=== PATIENT | male | born 1985 | race Caucasian/White ===

== ENCOUNTER → 2018-06-17 | Outpatient (CLI) | payer BC, OTHER ==
[~2018-06-17] VITALS: Ht 188 cm; Wt 83.9 kg
[~2018-06-17] MED LIST: FLEXERIL PO; LOSARTAN POTASS50 MG PO; MOBIC7.5 MG PO
--- NOTE | ~2018-06-17 | HPC ---
[facility] [address] [address] PAIN MANAGEMENT CONSULTATION Name: DACIA FRIED Room #: REG [facility] Dianne.#: [id number] Admission: 06/17/18 Attend Phys: Kirill Lockhart MD Discharge: Date of : 85 Report #: [id number] THIS REPORT FOR: //name// CC: Octaviano Vann MD [facility] Luly Juwan Lockhart DATE OF SERVICE: 06/17/2018 CHIEF COMPLAINT: Severe back spasm with radiation into both legs. The patient is a 32-year-old who is now on his first week of an acute back episode. He has never had an episode like this. He and his have a new baby. He was doing some bending, lifting and he noticed pain with forward flexion, which is now worsened into an episode of severe back spasm radiating down into the legs with hamstring tightness. He describes it as a continuous, steady, constant pain, burning, shooting, and pulling. Pain score is a 9/10. It is worse with all bending, lifting and even lowering his neck causes pain. It is made better by stretching and ice. He has had no treatments and considered chiropractic which we discussed today as an option. He has taken no medications as an anti-inflammatory drug. His only other medication is losartan. ALLERGIES: None. PAST MEDICAL HISTORY: Positive for hypertension. No previous surgeries. 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 Denies use of tobacco, drinks alcohol in social setting, usually around sporting events and with socializing. REVIEW OF SYSTEMS: Completely negative. PHYSICAL EXAMINATION: GENERAL: He is a fit-appearing 32-year-old. VITAL SIGNS: His blood pressure is 135/88, heart rate is 80. MUSCULOSKELETAL: He moves from a sitting to standing position gingerly and has trouble straightening up. He walks with antalgic gait. Spine reveals marked lumbar spasm and pain with forward flexion and extension limited by about 30-50% in all planes. Straight leg raising is very difficult owing to a significant hamstring tightness. This may be consistent with acute radiculopathy as well. Sensation is intact. No numbness or tingling. No focal weakness is noted. X-RAYS: None. [address] [address] PAIN MANAGEMENT CONSULTATION Name: DACIA FRIED Room #: REG [facility].#: [id number] Admission: 06/17/18 Attend Phys: Kirill Lockhart MD Discharge: Date of : 85 Report #: [id number] IMPRESSION: 1. Acute lumbosacral back pain with significant pain in the legs as well with hamstring tightness. RECOMMENDATIONS: Although, this may be a more significant event such as disk herniation, history is not consistent with an acute event one with gradual onset. This is also a fairly consistent finding in someone with the first episode of acute lumbosacral strain. I will hold off on ordering an MRI for this week as we see if he improves with some conservative measures. I referred him to [facility] for physical therapy. I have given him a nonsteroidal anti-inflammatory drug to take on a daily basis at 7.5 mg of meloxicam b.i.d. and I have given him cyclobenzaprine 10 mg t.i.d. for muscle spasm. We will hold off on any opioids for acute pain at this point. If his pain worsens, changes or if he notices more sensory symptoms such as numbness or weakness, then we will consider a more urgent MRI. He has no bowel or bladder dysfunction. Followup visit is planned in 1 week if not better. We will consider an epidural injection at that time if these conservative measures do not help. By: [id number] Kirill Lockhart MD /nt
[2018-06-17 15:13] VITALS: BP 150/96
== END ==
LOC: PAIN 13:12
DX: M54.5 Low back pain (principal); M79.604 Pain in right leg; M79.605 Pain in left leg; M62.830 Muscle spasm of back

== ENCOUNTER → 2018-08-08 | Outpatient (CLI) | payer BC, OTHER ==
[~2018-08-08] VITALS: Ht 188 cm; Wt 84.0 kg
--- NOTE | ~2018-08-08 | HPC ---
[facility] [place] [address] PAIN MANAGEMENT CONSULTATION Name: DACIA FRIED Room #: REG [facility].#: [id number] Admission: 08/08/18 Attend Phys: Kirill Lockhart MD Discharge: Date of : 85 Report #: [id number] THIS REPORT FOR: //name// CC: Luly Lockhart DATE OF SERVICE: 08/08/2018 Followup visit for low back pain with radiculopathy. It has now been over 2 months for the patient, he has completed physical therapy rotation, continues to do exercise, has been on pain medication including anti-inflammatories and is here today for consideration of an epidural injection. He has seen improvement in the tightness in his back, but the radicular symptoms of the right leg persist. MEDICATIONS: All medications reviewed. He continues on losartan. ALLERGIES: None. 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 He has a new baby and is enjoying the holiday. He is still somewhat limited in moving from sitting to standing position and ambulating. PHYSICAL EXAMINATION: He is 6 feet 2 inches, 185 pounds, BMI 23.8. Blood pressure 149/92, heart rate 74. Pain across the low back is noted. Limited range of motion in flexion and extension. Tenderness across the lumbosacral segment. Positive straight leg raising noted on the right. IMPRESSION: Lumbar radiculopathy. I would like to do an epidural injection today and get an MRI before the end of the year. Slow improvement warrants that we identify underlying pathology. Epidural injection, however, as I think is the most important step and we will do that to try and provide pain relief over the holidays. PROCEDURE: Lumbar epidural steroid injection under fluoroscopic guidance, L4-L5. DESCRIPTION OF PROCEDURE: He was taken to the fluoroscopic suite and placed prone, skin prepped with ChloraPrep. Skin anesthetized over the L4-L5 interspace. A 20-gauge Tuohy epidural needle advanced into the epidural space with good loss of resistance. I injected dye, but I was not pleased with the spread of dye, felt it was posterior even though the lateral appeared to be okay. The needle was removed and repositioned in the epidural space again with good loss to resistance. A better epidurogram was obtained moving to the right. [address] [address] PAIN MANAGEMENT CONSULTATION Name: DACIA FRIED Room #: [facility] [id number] Admission: 08/08/18 Attend Phys: Kirill Lockhart MD Discharge: Date of : 85 Report #: [id number] This was then followed by 3 mL of 0.5% lidocaine mixed with 80 mg of triamcinolone. He tolerated the procedure well and was observed for 45 minutes and discharged. Followup visit scheduled in the pain clinic in 1-2 months. By: 1637 Kirill Lockhart MD /christina
[2018-08-08 09:41] VITALS: BP 149/92
== END | disposition home or self-care (01) ==
LOC: PAIN 08:55
DX: M54.16 Radiculopathy, lumbar region (principal); G89.29 Other chronic pain; Z79.899 Other long term (current) drug therapy

== ENCOUNTER 2018-11-01 03:20 | Emergency (ER) | payer BC, OTHER ==
[~2018-11-01] VITALS: Ht 188 cm; Wt 83.9 kg
[2018-11-01 03:50] LABS: ABSOLUTE NEUTROPHILS 3.5 thou/uL (1.4-8.2); BASOPHILS 0.8 % (0.0-2.0); EOSINOPHILS 2.2 % (0.0-3.0); HEMATOCRIT 44.1 % (42.0-52.0); HEMOGLOBIN 15.2 gm/dL (14.0-18.0); LYMPHOCYTES 25.5 % (24.0-44.0); MCH 31.7 pg (26.0-34.0); MCHC 34.4 g/dL (28.0-37.0); MCV 92.1 fL (80.0-100.0); PLATELET COUNT 167 thou/uL (150-400); POLYS 62.5 % (36.0-66.0); RBC 4.79 mil/uL (4.50-6.00); RDW 13.2 % (10.5-14.5); WBC 5.6 thou/uL (4.0-11.0)
[2018-11-01 03:53] LABS: CREATININE 1.2 mg/dL (0.7-1.3); POTASSIUM 3.6 mmol/L (3.5-5.1)
[2018-11-01 04:28] LABS: URINE BILIRUBIN NEGATIVE (Negative); URINE BLOOD 3+ (Negative); URINE CLARITY CLEAR; URINE COLOR YELLOW; URINE GLUCOSE-RANDOM* NEGATIVE (Negative); URINE KETONES NEGATIVE (Negative); URINE LEUKOCYTES-REFLEX NEGATIVE (Negative); URINE NITRITE-REFLEX NEGATIVE (Negative); URINE PROTEIN (DIPSTICK) TRACE (Negative); URINE SPECIFIC GRAVITY >= 1.030 (1.005-1.035); URINE UROBILINOGEN 0.2 E.U./dl (0.2-1.0)
[2018-11-01 04:55] LABS: BACTERIA-REFLEX 1-9 Few /HPF (None Seen); CASTS None Seen /LPF (None Seen); CRYSTALS None Seen /LPF (None Seen); MUCUS 0-3 Light strn/LPF (None Seen); SQUAMOUS 0-3 Few /LPF (0-3); TRANSITIONAL EPITHEL CELL 0-3 Few /LPF (None Seen); URINE WBC-REFLEX 0-5 Rare /HPF (0-5)
[2018-11-01 05:59] VITALS: BP 142/77
[2018-11-01] MEDS ORDERED: FLOMAX0.4 MG PO (06:03)
[2018-11-01] MEDS ORDERED: NORCO 5-325 TA1 EACH PO (06:03)
[2018-11-01] MEDS ORDERED: ZOFRAN ODT4 MG PO (06:03)
== END 2018-11-01 06:11 | disposition home or self-care (01) ==
LOC: ER 03:20
PROVIDERS: Emergency Medicine
DX: N20.1 Calculus of ureter (principal); I10 Essential (primary) hypertension

== ENCOUNTER → 2018-12-09 | Outpatient (CLI) | payer BC, OTHER ==
[~2018-12-09] VITALS: Ht 188 cm; Wt 86.9 kg
[~2018-12-09] MED LIST changes: +FLOMAX0.4 MG PO; +NORCO 5-325 TA1 EACH PO; +ZOFRAN ODT4 MG PO
--- NOTE | ~2018-12-09 | HPC ---
[facility] [place] [address] PAIN MANAGEMENT CONSULTATION Name: DACIA FRIED Room #: REG [facility] Raffae[facility].#: [id number] Admission: 12/09/18 ������������������ Attend Phys: Kirill Lockhart MD Discharge: ������������������ Date of : 85 Report #: [id number] THIS REPORT FOR: //name// CC: LYNDSAY ROSE CANDELARIA Lockhart DATE OF SERVICE: 12/09/2018 Followup visit for chronic low back pain with radiculopathy. The patient was seen last on 08/08/2018 when we performed his first epidural injection for persistent low back pain with radiculopathy. After 2 weeks, the pain was gone and has stayed away up until just recently. He feels that he has exacerbated his pain with activities in the first part of October and it has not gotten better with conservative management over the last 3-4 weeks. He is here today for another epidural injection given his excellent response to his last injection. Pain intensity is a 7/10. It is worse with sitting and he actually has taken on a standing desk at work and a different chair, which has made a difference. MEDICATIONS: Losartan. ALLERGIES: None. PHYSICAL EXAMINATION: GENERAL: He is a healthy appearing 33-year-old. VITAL SIGNS: Blood pressure is 135/86, heart rate 98, respirations 16. He is 6 feet 2 inches, 191 pounds. MUSCULOSKELETAL: He moves from sitting to standing position without much difficulty and ambulates without difficulty. He has some pain across his low back, pain with positive straight leg raising noted bilaterally with tightness. MRI shows degenerative disk disease with a broad-based disk bulge at L4-L5. There is no spinal stenosis or neural foraminal narrowing. IMPRESSION: Degenerative disk disease, L4-L5 with radiculopathy, which is recurrent. RECOMMENDATIONS: Repeat epidural injection under fluoroscopic guidance. PROCEDURE: The patient was taken to fluoroscopic suite, placed prone, skin prepped with ChloraPrep. Skin anesthetized over L4-L5. A 20-gauge Tuohy epidural needle advanced first attempt in the epidural space with loss of resistance technique. There was no blood or CSF aspirated. 1 mL of Omnipaque injected. Good spread of dye observed in the epidural space followed by 3 mL of [facility] [address] [place] [address] PAIN MANAGEMENT CONSULTATION Name: DACIA FRIED [facility] #: [facility] [id number] Admission: 12/09/18 ������������������ Attend Phys: Kirill Lockhart MD Discharge: ������������������ Date of : 85 Report #: [id number] 0.5% lidocaine mixed with 80 mg of triamcinolone. He tolerated the procedure well and was observed for 45 minutes and discharged. Follow up as needed. ��������������������������������������������� ���������������������������������������� By: ��������������������������������������������� [id number] Kirill Lockhart MD /nt
[2018-12-09 13:46] VITALS: BP 135/86
--- NOTE | 2018-12-09 14:00 | NUR ---
Pain Clinic Assessment: 1. History of Osteoarthritis: no History of Rheumatoid Arthritis: no 2. Height: 6 ft. 2 in. 188.0 cm. Weight: 191.6 lb. oz. 86.909 kg. Patient's BMI: 24.6 3. Vital Signs: BP: 135/86 Pulse: 98 Resp: 16 Temp: 02 Sat: 97 ECG Mon: 4. Pain Intensity: 7 5. Fall Risk: Dizziness: N Needs help standing or walking: N Fallen in the last 3 months: N Fall risk comments: 6. Patient on Blood Thinner: None 7. History of Hypertension: Y 8. Opioid Therapy greater than 6 weeks: N Opiate Contract Signed: 9. Risk Assessment Tool Provided: LOW 10. Functional Assessment Tool: 11. Recreational Drug Use: Never Drug Type: Tobacco Use: Never Smoker Tobacco Type: Amount or Packs/day: How Many Years: Alcohol Use: Yes Frequency: Quant:
== END | disposition home or self-care (01) ==
LOC: PAIN 07:08
DX: M51.16 Intervertebral disc disorders with radiculopathy, lumbar region (principal); G89.29 Other chronic pain; Z98.890 Other specified postprocedural states; Z79.899 Other long term (current) drug therapy

== ENCOUNTER → 2019-07-21 | Outpatient (CLI) | payer BC, OTHER ==
[~2019-07-21] VITALS: Ht 188 cm; Wt 81.2 kg
[2019-07-21 14:38] VITALS: BP 127/83
--- NOTE | 2019-07-21 14:52 | NUR ---
Pain Clinic Assessment: 1. History of Osteoarthritis: no History of Rheumatoid Arthritis: no 2. Height: 6 ft. 2 in. 188.0 cm. Weight: 179.0 lb. oz. 81.194 kg. Patient's BMI: 23.0 3. Vital Signs: BP: 127/83 Pulse: 77 Resp: 16 Temp: 02 Sat: 100 ECG Mon: 4. Pain Intensity: 6 5. Fall Risk: Dizziness: N Needs help standing or walking: N Fallen in the last 3 months: N Fall risk comments: 6. Patient on Blood Thinner: None 7. History of Hypertension: Y 8. Opioid Therapy greater than 6 weeks: N Opiate Contract Signed: 9. Risk Assessment Tool Provided: LOW 10. Functional Assessment Tool: 11. Recreational Drug Use: Never Drug Type: Tobacco Use: Never Smoker Tobacco Type: Amount or Packs/day: How Many Years: Alcohol Use: Yes Frequency: Quant:
== END | disposition home or self-care (01) ==
LOC: PAIN 06:55
DX: M54.16 Radiculopathy, lumbar region (principal); G89.29 Other chronic pain; Z98.890 Other specified postprocedural states; Z79.899 Other long term (current) drug therapy; Z87.442 Personal history of urinary calculi

== ENCOUNTER → 2020-12-06 | Outpatient (CLI) | payer BC, OTHER | LOC: CAT 09:26 | PROVIDERS: ATTEND Nurse Practitioner | DX: J01.91 Acute recurrent sinusitis, unspecified (principal) ==

== ENCOUNTER → 2021-10-19 | Outpatient (CLI) | payer OTHER | LOC: CAT 10-17 09:27 | PROVIDERS: ATTEND Internal Medicine Cardiovascular Disease | DX: Z13.6 Encounter for screening for cardiovascular disorders (principal); I25.10 Atherosclerotic heart disease of native coronary artery without angina pectoris; E78.00 Pure hypercholesterolemia, unspecified ==